=== PATIENT | female | born 1940 | race Two or more races ===

== ENCOUNTER 2021-08-14 18:16 | Emergency (ER) | payer OTHER ==
[~2021-08-14] VITALS: Ht 154.9 cm; Wt 77.1 kg
[2021-08-14 22:45] VITALS: BP 155/82
== END 2021-08-14 22:56 | disposition home or self-care (01) ==
LOC: ER 18:16
DX: S16.1XXA Strain of muscle, fascia and tendon at neck level, initial encounter (principal); S30.0XXA Contusion of lower back and pelvis, initial encounter; S09.90XA Unspecified injury of head, initial encounter; D21.9 Benign neoplasm of connective and other soft tissue, unspecified; I10 Essential (primary) hypertension; E11.9 Type 2 diabetes mellitus without complications; E78.5 Hyperlipidemia, unspecified; E03.9 Hypothyroidism, unspecified; W18.39XA Other fall on same level, initial encounter; Y93.89 Activity, other specified; Y92.89 Other specified places as the place of occurrence of the external cause; Y99.8 Other external cause status
CPT/HCPCS: 70450; 72125; 72131